=== PATIENT | female | born 1950 | race African-American/Black ===

== ENCOUNTER 2016-12-22 12:38 | Emergency (ER) | payer MEDICARE ==
[~2016-12-22] VITALS: Ht 152.4 cm; Wt 60.8 kg
[~2016-12-22 12:38] MED LIST: CYMBALTA20 MG ORAL; CYMBALTA60 MG ORAL; GABAPENTIN100 MG ORAL; HYDROCHLOROTH12.5 M2 ORAL; IBUPROFEN600 MG ORAL; IBUPROFEN600 MG PO; MACROBID100 MG ORAL; OXYCODONE HCL5 M2 ORAL; PERCOCET 5-3251 EACH ORAL; SYNTHROID100 MCG ORAL; UNOBMED; VALIUM5 MG PO; VICODIN 5-5001 EACH PO
[2016-12-22] MEDS ORDERED: Oxycodone/Acetaminophen 5-325 ORAL ONE (13:30)
[2016-12-22] MEDS ORDERED: Ketorolac 60mg Inj IM ONE (13:30)
[2016-12-22 13:41] LABS: APPEARANCE,URINE CLOUDY; KETONES,URINE NEGATIVE (NEGATIVE); LEUKOCYTE ESTERASE ,URINE 1+ (NEGATIVE); NITRITE,URINE NEGATIVE (NEGATIVE); PH,URINE 6 (4.5-8.0); PROTEIN,URINE 2+ (NEGATIVE); UROBILINOGEN,URINE NORMAL MG/DL (0.0-1.0)
--- NOTE | 2016-12-22 14:11 | Emergency Room Report ---
History of Present Illness General Chief Complaint: Back Pain-No Injury Source: Patient Present Illness HPI 66-year-old female presents emergency department complaining of exacerbation of her chronic back pain. Patient reports 9/10 in severity low back pain that radiates down the right leg. Patient states that she is not able to be seen by her pain management doctor until next Monday. Patient states she took Percocet prior to arrival with no relief. Patient reports fall 3 weeks ago however she states she was evaluated by her doctor who did not recommend further surgeries as she has arty had 11. Patient states she has been receiving nerve injections in the back she denies fevers or chills denies tenderness to the areas that were previously injected denies erythema or fluctuance. Patient denies frequency, hematuria or dysuria.. Denies numbness tingling or loss of sensation or gross motor movements of the extremities, incontinence of bowel or bladder. Denies CP, Palpitations, LOC, AMS, dizziness, Changes in Vision, Sensation, paresthesias, or a sudden severe headache. Allergies: Coded Allergies: PENICILLINS (Verified Allergy, Mild, Hives, 01/14/13) Patient History Past Medical History: see triage record Past Surgical History: none Pertinent Family History: none Now: No Immunizations: UTD Reviewed Nursing Documentation: PMH: Agreed, PSxH: Agreed Nursing Documentation-PMH Past Medical History: No History, Except For Hx Hypertension: Yes - HIGH CHOLESTEROL Hx Diabetes: Yes Hx Neurological Problems: Yes - Sciatica, Back surgery 9 times, THYROID Review of Systems All Other Systems: negative except mentioned in HPI Physical Exam Vital Signs Date Time Temp Pulse Resp B/P Pulse Ox O2 Delivery O2 Flow Rate FiO2 12/22/16 12:50 93 16 126/82 95 Room Air Sp02 EP Interpretation: reviewed, normal General Appearance: no apparent distress, alert, GCS 15, non-toxic Head: normocephalic, atraumatic Eyes: bilateral eye PERRL, bilateral eye normal inspection ENT: hearing grossly normal, normal pharynx, no angioedema, normal voice Neck: full range of motion, supple/symm/no masses Respiratory: chest non-tender, lungs clear, normal breath sounds, speaking full sentences Cardiovascular #1: regular rate, rhythm, no edema Rectal: deferred Genitourinary: normal inspection, no CVA tenderness Musculoskeletal: back normal, gait/station normal - has walker as well., normal range of motion, tender - Mild Tenderness to palpation to paraspinal muscles of the lower back, no spinous process tenderness, no midline tenderness , no erythema, no fluctuance, multiple surgical scars noted. Neurologic: alert, oriented x3, responsive, motor strength/tone normal, sensory intact, speech normal Psychiatric: judgement/insight normal, memory normal, mood/affect normal Skin: normal color, no rash, warm/dry, well hydrated Lymphatic: no adenopathy Medical Decision Making PA Attestation Dr. Resendez is my supervising Physician whom patient management has been discussed with. Diagnostic Impression: Primary Impression: Chronic pain Qualified Codes: G89.4 - Chronic pain syndrome ER Course 66-year-old female presents emergency department complaining of exacerbation of her chronic back pain. Patient reports 9/10 in severity low back pain that radiates down the right leg. Patient states that she is not able to be seen by her pain management doctor until next Monday. Patient states she took Percocet prior to arrival with no relief. Patient reports fall 3 weeks ago however she states she was evaluated by her doctor who did not recommend further surgeries as she has arty had 11. Patient states she has been receiving nerve injections in the back she denies fevers or chills denies tenderness to the areas that were previously injected denies erythema or fluctuance. Patient denies frequency, hematuria or dysuria.. Ddx considered: epidural abscess, fracture, sprain/strain, meningitis, spinal chord injury, epidural abscess, exacerbation of chronic back pain. Vital signs reviewed and are WNL during ED visit. Pt. is afebrile with no signs of infection No new symptoms, and denies recent trauma. No saddle anesthesia noted, Pt. denies incontinence Neurovascular is intact ROM is limited due to pain * Mild Tenderness to palpation to paraspinal muscles of the lower back, no spinous process tenderness, no midline tenderness, no erythema, no fluctuance, multiple surgical scars noted. *Pt. describes pain today as moderate and radiates across the lower back and down the right thigh. ORDERS: -UA: Pending INTERVENTIONS: - 40mg IM Toradol -5mg [place] PO D/W Pt. that for further pain management is it recommended to consult PCP or a Chronic Pain management doctor. A provider who can safely prescribe controlled substances with close follow up. URINE RESULTS STILL PENDING AT THIS TIME, PT >REQUESTS TO LEAVE. DISPOSITION: - At this time the patient is requesting to leave AGAINST MEDICAL ADVICE. I believe that this patient has the capacity to make decisions on Her own. I discussed with the patient the risks of leaving AMA. Some of these risks include delay in diagnosis and treatment, as well as worsening of symptoms, organ damage, and permanent disability or even . After discussing these risks with the patient. She continues to express Her want to leave AGAINST MEDICAL ADVICE. I encouraged the patient to return at any time, and that she will be welcome here in the emergency department to continue medical management. Labs Test 12/22/16 13:30 Urine Color Pale yellow Urine Appearance Cloudy Urine pH 6 (4.5-8.0) Urine Specific [place] 1.010 (1.005-1.035) Urine Protein 2+ (NEGATIVE) Urine Glucose (UA) Negative (NEGATIVE) Urine Ketones Negative (NEGATIVE) Urine Occult Blood Negative (NEGATIVE) Urine Nitrite Negative (NEGATIVE) Urine Bilirubin Negative (NEGATIVE) Urine Urobilinogen Normal MG/DL (0.0-1.0) Urine Leukocyte Esterase 1+ (NEGATIVE) Urine RBC 2-4 /HPF (0 - 2) Urine WBC 2-4 /HPF (0 - 2) Urine Squamous Epithelial Cells Moderate /LPF (NONE/OCC) Urine Amorphous Sediment Moderate /LPF (NONE) Urine Bacteria Few /HPF (NONE) Last Vital Signs Date Time Temp Pulse Resp B/P Pulse Ox O2 Delivery O2 Flow Rate FiO2 12/22/16 12:50 93 16 126/82 95 Room Air Disposition: AGAINST MEDICAL ADVICE Condition: Unknown Josselyn Deng December 22, 2016 14:11
[2016-12-22 14:18] VITALS: BP 117/61
[2016-12-22 14:20] LABS: AMORPHOUS SEDIMENT,UR MODERATE /LPF; BACTERIA,URINE FEW /HPF; SQUAMOUS EPITHELIAL CELL,UR MODERATE /LPF (NONE/OCC)
== END 2016-12-22 14:40 | disposition left against medical advice (07) ==
LOC: EMR 14:37
DX: G89.4 Chronic pain syndrome (principal); M54.40 Lumbago with sciatica, unspecified side; E11.9 Type 2 diabetes mellitus without complications; E78.00 Pure hypercholesterolemia, unspecified; Z88.0 Allergy status to penicillin
CPT/HCPCS: 81003; 96372; 99283

== ENCOUNTER 2019-08-04 19:30 | Inpatient (IN) | payer MEDICARE, MEDICAID ==
[~2019-08-04] VITALS: Ht 165.1 cm; Wt 63.8 kg
--- NOTE | 2019-08-04 19:30 | NUR ---
NURSE NOTES: Patient arrived via ambulance from [place] directly to the floor. Patient on room air, no s/s respiratory distress.
[2019-08-04 20:00] VITALS: BP 136/74
--- NOTE | 2019-08-04 20:00 | NUR ---
NURSE NOTES: Normal sinus rhythm. Oriented patient to unit. Bed in low position, locked, bed alarm on, call light within reach. 24 gauge piv on right hand, intact, patent, no signs of infiltration, saline locked. Belongings list signed. patient has 1212 dollars in manzano, will place in safe with steam powerplant supervisor.
[2019-08-04 21:00] VITALS: BP 133/73
[2019-08-04] MEDS: Morphine Sulfate 4mg/ml Inj (IV USE ONLY) IVP PRN (22:45)
[2019-08-04] MEDS ORDERED: Nitroglycerin Subl 0.4mg tab SL PRN (23:30)
[2019-08-05] VITALS (7 sets, daily range): BP systolic 110–127; BP diastolic 55–73
--- NOTE | 2019-08-05 00:45 | NUR ---
NURSE NOTES: Left message for Dr. Gonsales regarding patient's c/o severe heartburn.
--- NOTE | 2019-08-05 01:08 | NUR ---
NURSE NOTES: Notified Dr. Gonsales second time by phone and left message requesting orders for patient's severe heartburn.
--- NOTE | 2019-08-05 01:40 | NUR ---
NURSE NOTES: Spoke with Dr. Gonsales and received orders for protonix 40mg po daily and mylanta 30 ml po q 6 hours prn.
[2019-08-05] MEDS ORDERED: GLIPIZIDE10 MG PO (02:33)
[2019-08-05] MEDS: Morphine Sulfate 4mg/ml Inj (IV USE ONLY) IVP PRN ×2 (03:18→20:17)
[2019-08-05] MEDS: NovoLOG Insulin Flexpen SUBQ SCH ×4 (06:18→20:27)
[2019-08-05 07:06] LABS: BASOPHILS % (AUTO) 0.4 % (0.0-2.0); EOSINOPHILS % (AUTO) 2.1 % (0.0-3.0); HEMATOCRIT 33.3 % (37.0-47.0); HEMOGLOBIN 10.8 G/DL (12.0-16.0); LYMPHOCYTES % (AUTO) 31.2 % (20.0-45.0); MEAN CORPUSCULAR VOLUME 90 FL (80-99); NEUTROPHILS % (AUTO) 57.4 % (45.0-75.0); PLATELET COUNT 266 K/UL (150-450); RED BLOOD COUNT 3.69 M/UL (4.20-5.40); RED CELL DISTRIBUTION WIDTH 14.5 % (11.6-14.8); WHITE BLOOD COUNT 5.9 K/UL (4.8-10.8)
--- NOTE | 2019-08-05 07:10 | NUR ---
NURSE NOTES: Received report from NARDA Wasserman. The patient is resting on the bed without acute distress or shortness of breath. The patient's bed in the lowest position, call light in reach, and fall and aspiration precaution reinforced. IV site intact and patent. Will continue plan of care.
[2019-08-05 07:22] LABS: ALANINE AMINOTRANSFERASE 21 U/L (12-78); ALBUMIN 3.3 G/DL (3.4-5.0); ALBUMIN/GLOBULIN RATIO 0.9 (1.0-2.7); ALKALINE PHOSPHATASE 65 U/L (46-116); ANION GAP 7 mmol/L (5-15); ASPARTATE AMINO TRANSFERASE 12 U/L (15-37); BILIRUBIN,TOTAL 0.2 MG/DL (0.2-1.0); BLOOD UREA NITROGEN 29 mg/dL (7-18); CALCIUM 9.4 MG/DL (8.5-10.1); CARBON DIOXIDE 28 MMOL/L (21-32); CHLORIDE 106 MMOL/L (98-107); CHOLESTEROL 118 MG/DL (< 200); CREATININE 1.4 MG/DL (0.55-1.30); HDL CHOLESTEROL 31 MG/DL (40-60); PHOSPHORUS 4.4 MG/DL (2.5-4.9); POTASSIUM 4.9 MMOL/L (3.5-5.1); SODIUM 141 MMOL/L (136-145); TRIGLYCERIDES 85 MG/DL (30-150)
[2019-08-05] MEDS: GlipiZIDE 5mg tab ORAL SCH (08:46)
[2019-08-05] MEDS: Heparin 5000 units/ml inj SUBQ SCH ×2 (08:47→20:24)
[2019-08-05] MEDS ORDERED: Gabapentin 300 MG/6 ML Soln GT SCH (09:00)
--- NOTE | 2019-08-05 10:45 | NUR ---
NURSE NOTES: The patient has discomfort on chest that is radiating back. EKG taken and reported to Dr. Gonsales. Per Dr. Gonsales, no new order. The patient is calm and cooperative. Will continue plan of care.
--- NOTE | 2019-08-05 11:30 | NUR ---
NURSE NOTES: The patient is stable without acute distress or shortness of breath. Will continue plan of care.
--- NOTE | 2019-08-05 12:00 | NUR ---
NURSE NOTES: Notified Dr. Gill regarding the patient's discomfort on chest. No new order per Dr. Gill. Will continue plan of care.
--- NOTE | 2019-08-05 12:09 | Consultation ---
History of Present Illness General Date patient seen: Aug 05, 2019 Present Illness HPI 69 year old female with hx of HTN, DM, CAD, with 3 stents, on Brilinta, chronic back pain, was taken to [facility] with CC of chest pain, starting the night before, mostly substernal, burning, constant radiating to her left arm. she has many ER visits to [facility] with the same symptoms. Her CXR and troponin was negative. She got a GI cocktail, morphine, full dose of ASA and transferred to [facility] for further management. Allergies: Coded Allergies: PENICILLINS (Verified Allergy, Mild, Hives, 01/14/13) NSAIDS (NON-STEROIDAL ANTI-INFLAMMA (Unverified Allergy, Unknown, unknown , 08/05/19) Medication History Scheduled Diazepam* (Valium*), 5 MG PO TID Duloxetine (Cymbalta), 20 MG ORAL DAILY, (Reported) Duloxetine Hcl* (Cymbalta*), 300 MG ORAL DAILY, (Reported) Gabapentin* (Gabapentin*), 100 MG ORAL BID, (Reported) Glipizide (Glipizide), 10 MG PO DAILY, (Reported) Hydrochlorothiazide* (Hydrochlorothiazide*), 12.5 MG ORAL DAILY, (Reported) Hydrocodone/Acetaminophen 5-500 (Vicodin 5-500), 1 TAB PO Q8H Ibuprofen* (Motrin*), 600 MG PO TID Levothyroxine Sodium* (Synthroid*), 100 MCG ORAL DAILY, (Reported) Nitrofurantoin Monohyd/M-Cryst (Nitrofurantoin [place]-Mcr 100 mg), 100 MG ORAL Q12H Scheduled PRN Ibuprofen* (Motrin*), 600 MG ORAL Q6H PRN for For Pain Oxycodone Hcl* (Oxycodone Hcl*), 5 MG ORAL Q4H PRN for For Pain, (Reported) Oxycodone/Acetaminophen 5-325* (Percocet 5-325 Mg Tablet*), 1 TAB ORAL Q6H PRN for For Pain Patient History Healthcare decision maker Resuscitation status Full Code Advanced Directive on File Past Medical/Surgical History Past Medical/Surgical History: (1) CAD (coronary artery disease) (2) Stented coronary artery Review of Systems All Other Systems: negative except mentioned in HPI Physical Exam General Appearance: WD/WN, no apparent distress Lines, tubes and drains: peripheral HEENT: normocephalic, atraumatic Neck: non-tender, normal alignment Respiratory/Chest: chest wall non-tender Breasts: no masses Cardiovascular/Chest: normal peripheral pulses Abdomen: normal bowel sounds Genitourinary/Rectal: normal genital exam Last 24 Hour Vital Signs Date Time Temp Pulse Resp B/P (MAP) Pulse Ox O2 Delivery O2 Flow Rate FiO2 08/05/19 09:00 Room Air 08/05/19 08:00 68 08/05/19 08:00 97.5 73 18 127/63 (84) 98 08/05/19 04:00 97.2 77 20 127/69 (88) 94 08/05/19 04:00 80 08/05/19 00:00 98.2 84 21 127/69 (88) 98 08/05/19 00:00 83 08/04/19 21:00 97.3 75 20 133/73 (93) 97 08/04/19 20:00 72 08/04/19 20:00 Room Air 08/04/19 20:00 97.9 66 20 136/74 (94) 98 Intake and Output 08/04/19 08/05/19 19:00 07:00 Output Total 0 ml Balance 0 ml Output Urine Total 0 ml Laboratory Tests Test 08/05/19 06:00 White Blood Count 5.9 K/UL (4.8-10.8) Red Blood Count 3.69 M/UL (4.20-5.40) L Hemoglobin 10.8 G/DL (12.0-16.0) L Hematocrit 33.3 % (37.0-47.0) L Mean Corpuscular Volume 90 FL (80-99) Mean Corpuscular Hemoglobin 29.3 PG (27.0-31.0) Mean Corpuscular Hemoglobin Concent 32.4 G/DL (32.0-36.0) Red Cell Distribution Width 14.5 % (11.6-14.8) Platelet Count 266 K/UL (150-450) Mean Platelet Volume 5.3 FL (6.5-10.1) L Neutrophils (%) (Auto) 57.4 % (45.0-75.0) Lymphocytes (%) (Auto) 31.2 % (20.0-45.0) Monocytes (%) (Auto) 9.0 % (1.0-10.0) Eosinophils (%) (Auto) 2.1 % (0.0-3.0) Basophils (%) (Auto) 0.4 % (0.0-2.0) Sodium Level 141 MMOL/L (136-145) Potassium Level 4.9 MMOL/L (3.5-5.1) Chloride Level 106 MMOL/L (98-107) Carbon Dioxide Level 28 MMOL/L (21-32) Anion Gap 7 mmol/L (5-15) Blood Urea Nitrogen 29 mg/dL (7-18) H Creatinine 1.4 MG/DL (0.55-1.30) H Estimat Glomerular Filtration Rate 45.3 mL/min (>60) Glucose Level 101 MG/DL (74-106) Uric Acid Pending Calcium Level 9.4 MG/DL (8.5-10.1) Phosphorus Level 4.4 MG/DL (2.5-4.9) Magnesium Level 2.0 MG/DL (1.8-2.4) Total Bilirubin 0.2 MG/DL (0.2-1.0) Aspartate Amino Transf (AST/SGOT) 12 U/L (15-37) L Alanine Aminotransferase (ALT/SGPT) 21 U/L (12-78) Alkaline Phosphatase 65 U/L (46-116) Total Creatine Kinase Pending Troponin I 0.005 ng/mL (0.000-0.056) Total Protein 7.0 G/DL (6.4-8.2) Albumin 3.3 G/DL (3.4-5.0) L Globulin 3.7 g/dL Albumin/Globulin Ratio 0.9 (1.0-2.7) L Triglycerides Level 85 MG/DL (30-150) Cholesterol Level 118 MG/DL (< 200) LDL Cholesterol 56 mg/dL (<100) HDL Cholesterol 31 MG/DL (40-60) L Cholesterol/HDL Ratio 3.8 (3.3-4.4) Height (Feet): 5 Height (Inches): 5.00 Weight (Pounds): 133 Medications Current Medications Medications (Trade) Dose Ordered Sig/Kelly Route PRN Reason Start Time Stop Time Status Last Admin Dose Admin Acetaminophen (Tylenol) 650 mg Q6H PRN ORAL Mild Pain/Temp > 100.5 08/04/19 23:30 09/03/19 23:29 Al Hydroxide/Mg Hydroxide (Mylanta) 30 ml Q6H PRN ORAL heartburn 08/05/19 01:30 09/04/19 01:29 08/05/19 01:38 Dextrose (Dextrose 50%) 25 ml Q30M PRN IV Hypoglycemia 08/04/19 21:30 09/03/19 21:29 Dextrose (Dextrose 50%) 50 ml Q30M PRN IV Hypoglycemia 08/04/19 21:30 09/03/19 21:29 Duloxetine HCl (Cymbalta) 60 mg DAILY ORAL 08/05/19 09:00 09/04/19 08:59 08/05/19 08:46 Gabapentin (Neurontin) 300 mg THREE TIMES A DAY ORAL 08/05/19 09:00 09/04/19 08:59 08/05/19 08:46 Glipizide (Glucotrol) 10 mg DAILY ORAL 08/05/19 09:00 09/04/19 08:59 08/05/19 08:46 Heparin Sodium (Porcine) (Heparin 5000 units/ml) 5,000 units EVERY 12 HOURS SUBQ 08/05/19 09:00 09/04/19 08:59 08/05/19 08:47 Insulin Aspart (NovoLOG) BEFORE MEALS AND HS SUBQ 08/05/19 06:30 09/04/19 06:29 Levothyroxine Sodium (Synthroid) 88 mcg DAILY@0630 ORAL 08/05/19 06:30 09/04/19 06:29 08/05/19 06:03 Morphine Sulfate (Morphine Sulfate) 4 mg Q4H PRN IVP severe pain 08/04/19 21:30 08/11/19 21:29 08/05/19 03:18 Nitroglycerin (Ntg) 0.4 mg Q5M PRN SL Prn Chest Pain 08/04/19 23:30 09/03/19 23:29 Non-Formulary Medication (Non-Formulary Med) 1 ea DAILY ORAL 08/05/19 09:00 09/04/19 08:59 UNV Ondansetron HCl (Zofran) 4 mg Q4HR PRN IVP Nausea & Vomiting 08/04/19 22:45 09/03/19 22:44 08/04/19 22:58 Oxycodone/ Acetaminophen (Percocet 10/325) 1 tab Q6HR PRN GT moderate pain 08/04/19 22:45 08/11/19 21:29 08/05/19 06:05 Pantoprazole (Protonix) 40 mg DAILY ORAL 08/05/19 02:00 09/04/19 01:59 08/05/19 01:38 Assessment/Plan Problem List: (1) ACS (acute coronary syndrome) ICD Codes: I24.9 - Acute ischemic heart disease, unspecified SNOMED: 210804590 (2) Stented coronary artery ICD Codes: Z95.5 - Presence of coronary angioplasty implant and graft SNOMED: 90558841, 621977191 (3) CAD (coronary artery disease) ICD Codes: I25.10 - Atherosclerotic heart disease of [place] coronary artery without angina pectoris SNOMED: 56503713 (4) Chronic pain ICD Codes: G89.29 - Other chronic pain SNOMED: 54453906 Assessment/Plan: serial ekg, troponin telemetry monitoring check echo symptomatic treatment H2 blockers might have GERD DVT prophylaxis. Emma Manrique MD Aug 05, 2019 12:09
[2019-08-05 12:10] LABS: CREATINE KINASE 42 U/L (26-308)
--- NOTE | 2019-08-05 15:15 | NUR ---
NURSE NOTES: Per patient, the family member will bring Mirlande.
--- NOTE | 2019-08-05 16:00 | NUR ---
NURSE NOTES: The patient is stable without acute distress or shortness of breath. Will continue plan of care.
--- NOTE | 2019-08-05 16:44 | Diagnostic Imaging Report ---
Indication: Abnormal renal function tests Technique: Grayscale and duplex images of the kidneys, retroperitoneum, and bladder were obtained. Comparison: none Findings: Right kidney measures 9.7 cm in length. Left kidney measures 8 cm in length. Both kidneys demonstrate normal echogenicity. There is moderate right hydronephrosis versus right renal parapelvic cysts. No focal abnormality otherwise. Normal inferior vena cava. Bladder demonstrates prevoid bladder volume of 3 29 mL, and postvoid volume of 98 mL. Impression: Moderate right hydronephrosis versus parapelvic cysts Small left kidney 98 mL postvoid bladder volume.
--- NOTE | 2019-08-05 18:00 | NUR ---
NURSE NOTES: Informed Dr. Manrique and Dr. Gill that the patient family member cannot bring Brilinta. Asked Dr. Gill and Dr. Manrique for possible alternative. Per Dr. Gill, he will assess the patient and will order if indicated. The patient is stable without acute distress or shortness of breath. Will continue plan of care.
--- NOTE | 2019-08-05 19:15 | NUR ---
HAND-OFF: Report given to NARDA Wasserman. The patient is resting on the bed without acute distress or shortness of breath. The patient's bed in the lowest position, call light in reach, and fall and aspiration precaution reinforced. IV site intact and patent. Endorsed plan of care.
--- NOTE | 2019-08-05 19:36 | NUR ---
NURSE NOTES: Patient in bed, alert and oriented x4, on room air, no s/s respiratory distress. Asked again if patient wants to lock up the 1212 dollars of manzano with the respiratory supervisor. Patient continues to decline. Instructed patient to provide a sample of urine. Patient verbalized understanding.
--- NOTE | 2019-08-05 19:44 | History & Physical ---
History and Physical History & Physicial Dictated for Int Med-Dr Gonsales no. [id number]. Musa Barlow MD Aug 05, 2019 19:44
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
[2019-08-05] MEDS ORDERED: Atorvastatin 20mg tab ORAL SCH (21:00)
[2019-08-05] MEDS: Aspirin EC 81mg tab ORAL SCH (21:35)
[2019-08-05] MEDS: Imdur 30mg tab ORAL SCH (21:35)
[2019-08-05] MEDS: Ranolazine 500mg tab ORAL SCH (21:35)
--- NOTE | 2019-08-05 21:45 | History and Physical Report ---
DATE OF ADMISSION: 08/04/2019 CHIEF COMPLAINT: The patient is a 69-year-old female, who presents with a chief complaint of chest pain. HISTORY OF PRESENT ILLNESS: The patient has a history of coronary artery disease. The patient is status post three stents placed. The patient presented to [facility] emergency room with complaint of chest pain. The patient apparently had been at [facility] ten days previously for chest pain. The patient was placed under observation and discharge. The patient was transferred to [facility] for insurance purposes. The patient was admitted with chest pain to rule out acute coronary syndrome. REVIEW OF SYSTEMS: CONSTITUTIONAL: The patient denies weight loss or weight gain. The patient denies fevers or chills. HEENT: The patient denies ear or throat pain. The patient denies headache. CARDIOVASCULAR: The patient complains of chest pain as above. The patient denies palpitations. CHEST: The patient denies wheeze or shortness of breath. ABDOMINAL: The patient denies nausea, vomiting, diarrhea, or constipation. GENITOURINARY: The patient denies dysuria or increased frequency of urination. NEUROMUSCULAR: The patient denies seizures or generalized weakness. PAST MEDICAL HISTORY: Significant for: 1. Hypertension. 2. Coronary artery disease status post three stent placed at [facility]. PAST SURGICAL HISTORY: The patient denies. CURRENT MEDICATIONS: 1. Valium 5 mg one tablet p.o. three times daily p.r.n. 2. Cymbalta 20 mg p.o. daily. 3. Gabapentin 100 mg p.o. twice daily. 4. Glipizide 10 mg p.o. daily. 5. Hydrochlorothiazide 12.5 mg p.o. daily. 6. Levoxyl 100 mcg p.o. daily. 7. Percocet 5/325 mg one tablet p.o. q.6 h. p.r.n. ALLERGIES: NSAIDs and penicillin. SOCIAL HISTORY: The patient is single and lives alone. The patient denies tobacco or alcohol use. PHYSICAL EXAMINATION: VITAL SIGNS: Temperature 98.0 degrees Fahrenheit, respirations 18, pulse 105, blood pressure 169/101. GENERALLY: The patient is well-developed and well-nourished female, in no apparent distress. HEENT: Eyes, pupils are equal and responsive to light and accommodation. Extraocular movements are intact. NECK: Supple. No lymphadenopathy. CHEST: Lungs are clear to auscultation bilaterally without wheezes or rales. CARDIOVASCULAR: Regular rate. S1 and S2 normal without murmurs, rubs, or gallops. ABDOMEN: Soft, nontender, and nondistended. Positive bowel sounds. No evidence of hepatosplenomegaly. Currently, no rebound or guarding noted. EXTREMITIES: No clubbing, cyanosis, or edema. RECTAL: Not performed. GENITAL: Not performed. NEUROLOGIC: Cranial nerves II through XII are grossly intact without focal deficits. Motor strength is 5/5 bilaterally. Deep tendon reflexes are 2+ plantar. LABORATORY STUDIES: WBC 7.2, hemoglobin 12.2, hematocrit 37.2, platelets 316,000. Troponin less than 0.02. Sodium 143, potassium 4.2, chloride 106, CO2 23, BUN 26, creatinine 1.33, glucose 108. An EKG demonstrated normal sinus rhythm at approximately 80 beats per minute. There are no acute ST or Q-waves noted. ASSESSMENT: This is a 69-year-old female. 1. Chest pain. 2. Hypertension. 3. Coronary artery disease. 4. Hypothyroidism. 5. Diabetes type 2. TREATMENT: 1. Chest pain/coronary disease. A Cardiology consultation has been obtained with Dr. Thomas Thompson. We will follow recommendations of Cardiology. 2. Hypertension. The patient is currently normotensive off medication. 3. Hypothyroidism. Continue Synthroid as above. 4. Diabetes type 2. Continue glyburide as above. Musa Barlow M.D. DR: Rj JOB#: [id number] CC:
[2019-08-06] VITALS: BP 110/64
[2019-08-06] MEDS: Morphine Sulfate 4mg/ml Inj (IV USE ONLY) IVP PRN ×3 (01:09→21:44)
[2019-08-06 04:00] VITALS: BP 107/60
[2019-08-06] MEDS: NovoLOG Insulin Flexpen SUBQ SCH ×4 (06:15→20:36)
[2019-08-06 06:26] LABS: APPEARANCE,URINE CLEAR; BILIRUBIN, URINE NEGATIVE (NEGATIVE); COLOR,URINE PALE YELLOW; GLUCOSE, URINE (UA) NEGATIVE (NEGATIVE); KETONES,URINE NEGATIVE (NEGATIVE); LEUKOCYTE ESTERASE ,URINE 1+ (NEGATIVE); NITRITE,URINE NEGATIVE (NEGATIVE); PH,URINE 6 (4.5-8.0); PROTEIN,URINE 2+ (NEGATIVE); UROBILINOGEN,URINE NORMAL MG/DL (0.0-1.0)
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
[2019-08-06 07:20] LABS: BASOPHILS % (AUTO) 0.4 % (0.0-2.0); EOSINOPHILS % (AUTO) 2.2 % (0.0-3.0); HEMATOCRIT 32.5 % (37.0-47.0); HEMOGLOBIN 10.4 G/DL (12.0-16.0); LYMPHOCYTES % (AUTO) 30.4 % (20.0-45.0); MEAN CORPUSCULAR VOLUME 92 FL (80-99); MONOCYTES % (AUTO) 9.2 % (1.0-10.0); NEUTROPHILS % (AUTO) 57.7 % (45.0-75.0); PLATELET COUNT 292 K/UL (150-450); RED BLOOD COUNT 3.55 M/UL (4.20-5.40); RED CELL DISTRIBUTION WIDTH 14.7 % (11.6-14.8); WHITE BLOOD COUNT 5.2 K/UL (4.8-10.8)
[2019-08-06 07:46] LABS: ALANINE AMINOTRANSFERASE 22 U/L (12-78); ALBUMIN 3.2 G/DL (3.4-5.0); ALBUMIN/GLOBULIN RATIO 0.9 (1.0-2.7); ALKALINE PHOSPHATASE 65 U/L (46-116); AMYLASE 122 U/L (25-115); ANION GAP 6 mmol/L (5-15); ASPARTATE AMINO TRANSFERASE 12 U/L (15-37); BILIRUBIN,TOTAL 0.2 MG/DL (0.2-1.0); BLOOD UREA NITROGEN 32 mg/dL (7-18); CALCIUM 8.9 MG/DL (8.5-10.1); CARBON DIOXIDE 29 MMOL/L (21-32); CHLORIDE 108 MMOL/L (98-107); CHOLESTEROL 113 MG/DL (< 200); CREATININE 1.4 MG/DL (0.55-1.30); HDL CHOLESTEROL 25 MG/DL (40-60); POTASSIUM 4.4 MMOL/L (3.5-5.1); SODIUM 142 MMOL/L (136-145); TRIGLYCERIDES 147 MG/DL (30-150)
[2019-08-06 08:00] VITALS: BP 106/60
[2019-08-06] MEDS: Heparin 5000 units/ml inj SUBQ SCH ×3 (09:00→20:36)
[2019-08-06] MEDS: Aspirin EC 81mg tab ORAL SCH (09:04)
[2019-08-06] MEDS: GlipiZIDE 5mg tab ORAL SCH (09:04)
[2019-08-06] MEDS: Ranolazine 500mg tab ORAL SCH ×2 (09:05→20:35)
[2019-08-06] MEDS: Imdur 30mg tab ORAL SCH (09:05)
--- NOTE | 2019-08-06 10:30 | NUR ---
NURSE NOTES: The patient is stable without acute distress or shortness of breath. Will continue plan of care.
--- NOTE | 2019-08-06 11:00 | NUR ---
NURSE NOTES: Notified Dr. Manrique and the charge nurse regarding hypoglycemia with BS of 59. Per order, gave orange juice. The patient is alert and oriented and asymptomatic. Will recheck blood sugar 15 minute later.
--- NOTE | 2019-08-06 11:03 | NUR ---
CASE MANAGEMENT: INITIAL REVIEW 69YR OLD FEMALE FROM [facility] PMH: HTN, DM, CAD, AND 3 STENTS SI: CORONARY ARTERY DISEASE . STENTED CORONARY ARTERY 97.9 66 72 136/74 98% ON RA H/H 10.8/33.3 BUN 29 CREAT 1.4 AST 12 IS: IMDUR PO QD HEPARIN SQ BID PERCOCET GT QHS NEURONTIN GT TID PROTONIX PO QD \: 2E TELE UNIT PLAN: CT ABD - CHECK FOR HYDRONEPHROSIS DOWNGRADE MED SURG
--- NOTE | 2019-08-06 11:06 | Pulmonology Progress Note ---
Assessment/Plan Problems: (1) ACS (acute coronary syndrome) (2) Hydronephrosis, right (3) Stented coronary artery (4) CAD (coronary artery disease) (5) Chronic pain Assessment/Plan will get CT with contrast to clarify the findings on US of kidney which showed: Impression: Moderate right hydronephrosis versus parapelvic cysts Renal numbers are stable cardio note appreciated check echo Subjective ROS Limited/Unobtainable: No Constitutional: Reports: no symptoms HEENT: Repors: no symptoms Allergies: Coded Allergies: PENICILLINS (Verified Allergy, Mild, Hives, 01/14/13) NSAIDS (NON-STEROIDAL ANTI-INFLAMMA (Unverified Allergy, Unknown, unknown , 08/05/19) Objective Last 24 Hour Vital Signs Date Time Temp Pulse Resp B/P (MAP) Pulse Ox O2 Delivery O2 Flow Rate FiO2 08/06/19 09:05 106/60 08/06/19 09:00 Room Air 08/06/19 08:00 69 08/06/19 08:00 97.8 76 18 106/60 (75) 97 08/06/19 04:00 98.1 87 19 107/60 (76) 92 08/06/19 04:00 82 08/06/19 00:00 98.2 81 18 110/64 (79) 91 08/06/19 00:00 81 08/05/19 21:35 115/55 (75) 08/05/19 21:00 Room Air 08/05/19 20:00 97.8 79 19 110/64 (79) 93 08/05/19 20:00 80 08/05/19 16:00 72 08/05/19 16:00 97.8 85 18 111/73 (86) 99 08/05/19 12:00 98.2 59 18 125/64 (84) 99 08/05/19 12:00 67 Intake and Output 08/05/19 08/06/19 19:00 07:00 Intake Total 900 ml 480 ml Balance 900 ml 480 ml Intake Oral 900 ml 480 ml # Voids 5 1 General Appearance: cachetic HEENT: normocephalic, atraumatic Respiratory/Chest: chest wall non-tender, lungs clear Breasts: no masses Cardiovascular: normal peripheral pulses Abdomen: normal bowel sounds, soft, non tender Genitourinary: normal external genitalia Extremities: no clubbing Neurologic/Psychiatric: gambling dealer II-XII grossly normal Laboratory Tests 08/06/19 03:50: Urine Color Pale yellow, Urine Appearance Clear, Urine pH 6, Urine Specific Dewitt 1.010, Urine Protein 2+H, Urine Glucose (UA) Negative, Urine Ketones Negative, Urine Blood Negative, Urine Nitrite Negative, Urine Bilirubin Negative , Urine Urobilinogen Normal, Urine Leukocyte Esterase 1+H, Urine RBC 0-2, Urine WBC 0-2, Urine Squamous Epithelial Cells Few, Urine Bacteria None, Urine Eosinophils None seen, Urine Osmolality 443, Urine Random Creatinine [Pending], Urine Random Microalbumin [Pending], Urine Random Sodium 28, Urine Microalbumin/ Creatinine Ratio [Pending] 08/06/19 05:54: White Blood Count 5.2, Red Blood Count 3.55L, Hemoglobin 10.4L, Hematocrit 32.5L , Mean Corpuscular Volume 92, Mean Corpuscular Hemoglobin 29.2, Mean Corpuscular Hemoglobin Concent 31.8L, Red Cell Distribution Width 14.7, Platelet Count 292, Mean Platelet Volume 5.7L, Neutrophils (%) (Auto) 57.7, Lymphocytes (%) (Auto) 30.4, Monocytes (%) (Auto) 9.2, Eosinophils (%) (Auto) 2.2, Basophils (%) (Auto) 0.4, Erythrocyte Sedimentation Rate 64H, Sodium Level 142, Potassium Level 4.4, Chloride Level 108H, Carbon Dioxide Level 29, Anion Gap 6, Blood Urea Nitrogen 32H, Creatinine 1.4H, Estimat Glomerular Filtration Rate 45.3, Glucose Level 125H, Calcium Level 8.9, Phosphorus Level 5.0H, Magnesium Level 2.1, Total Bilirubin 0.2, Aspartate Amino Transf (AST/SGOT) 12L , Alanine Aminotransferase (ALT/SGPT) 22, Alkaline Phosphatase 65, Troponin I 0.003, Pro-B-Type Natriuretic Peptide 377H, Total Protein 6.8, Albumin 3.2L, Globulin 3.6, Albumin/Globulin Ratio 0.9L, Triglycerides Level 147, Cholesterol Level 113, LDL Cholesterol 55, HDL Cholesterol 25L, Cholesterol/HDL Ratio 4.5H, Amylase Level 122H, Lipase 356 Current Medications Medications (Trade) Dose Ordered Sig/Kelly Route PRN Reason Start Time Stop Time Status Last Admin Dose Admin Acetaminophen (Tylenol) 650 mg Q6H PRN ORAL Mild Pain/Temp > 100.5 08/04/19 23:30 09/03/19 23:29 Al Hydroxide/Mg Hydroxide (Mylanta) 30 ml Q6H PRN ORAL heartburn 08/05/19 01:30 09/04/19 01:29 08/06/19 10:56 Aspirin (Ecotrin) 81 mg DAILY ORAL 08/05/19 21:00 09/04/19 20:59 08/06/19 09:04 Atorvastatin Calcium (Lipitor) 40 mg BEDTIME ORAL 08/05/19 21:00 09/04/19 20:59 08/05/19 21:36 Dextrose (Dextrose 50%) 25 ml Q30M PRN IV Hypoglycemia 08/04/19 21:30 09/03/19 21:29 Dextrose (Dextrose 50%) 50 ml Q30M PRN IV Hypoglycemia 08/04/19 21:30 09/03/19 21:29 Duloxetine HCl (Cymbalta) 60 mg DAILY ORAL 08/05/19 09:00 09/04/19 08:59 08/06/19 09:04 Gabapentin (Neurontin) 300 mg THREE TIMES A DAY ORAL 08/05/19 09:00 09/04/19 08:59 08/06/19 09:05 Glipizide (Glucotrol) 10 mg DAILY ORAL 08/05/19 09:00 09/04/19 08:59 08/06/19 09:04 Heparin Sodium (Porcine) (Heparin 5000 units/ml) 5,000 units EVERY 12 HOURS SUBQ 08/05/19 09:00 09/04/19 08:59 08/05/19 20:24 Insulin Aspart (NovoLOG) BEFORE MEALS AND HS SUBQ 08/05/19 06:30 09/04/19 06:29 08/06/19 06:15 Isosorbide Mononitrate (Imdur) 30 mg DAILY ORAL 08/05/19 21:00 09/04/19 20:59 08/06/19 09:05 Levothyroxine Sodium (Synthroid) 75 mcg DAILY@0630 ORAL 08/06/19 06:30 09/05/19 06:29 08/06/19 06:10 Levothyroxine Sodium (Synthroid) 100 mcg DAILY@0630 ORAL 08/06/19 06:30 09/05/19 06:29 08/06/19 06:10 Morphine Sulfate (Morphine Sulfate) 4 mg Q4H PRN IVP severe pain 08/04/19 21:30 08/11/19 21:29 08/06/19 01:09 Nitroglycerin (Ntg) 0.4 mg Q5M PRN SL Prn Chest Pain 08/04/19 23:30 09/03/19 23:29 Ondansetron HCl (Zofran) 4 mg Q4HR PRN IVP Nausea & Vomiting 08/04/19 22:45 09/03/19 22:44 08/04/19 22:58 Oxycodone/ Acetaminophen (Percocet 10/325) 1 tab Q6H PRN ORAL moderate pain 08/05/19 12:30 08/12/19 12:29 08/06/19 10:56 Pantoprazole (Protonix) 40 mg DAILY ORAL 08/05/19 02:00 09/04/19 01:59 08/06/19 09:05 Ranolazine (Ranexa ER 500mg) 500 mg Q12HR ORAL 08/05/19 21:00 09/04/19 20:59 08/06/19 09:05 Emma Manrique MD Aug 06, 2019 11:06
--- NOTE | 2019-08-06 11:14 | NUR ---
NURSE NOTES: spoke with dr tong and received order okay to transfer pt to [facility].
[2019-08-06] MEDS ORDERED: Omnipaque-300 100ml vial INJ PRN ×2 (11:15→12:45)
--- NOTE | 2019-08-06 11:15 | NUR ---
NURSE NOTES: Rechecked blood sugar. The figure was 62. The patient is stable without acute distress, shortness of breath, symptoms of hypoglycemia. The patient is alert, oriented, and asymptomatic. Will recheck blood sugar in 15 minute.
--- NOTE | 2019-08-06 11:30 | NUR ---
NURSE NOTES: Rechecked the blood sugar. The figure was 102. The patient is alert, oriented, and asymptomatic. Will continue plan of care.
[2019-08-06 12:00] VITALS: BP 132/70
--- NOTE | 2019-08-06 12:00 | NUR ---
TRANSFER TO FLOOR: Patient transferred to [facility] with med/surg transfer order per Dr. Manrique. The patient's belongings checked including manzano in hand ($[id number])with the patient and two nurses and signed by two nurses. The patient declined to put her valuables @ security. Comprehensive report given to NARDA Knott the receiving nurse. The patient is safely transferred from to [facility] in a safe manner. The patient is stable without acute distress or shortness of breath. The patient's bed in the lowest position, call light in reach, and fall and aspiration precaution reinforced. IV site intact and patent. Endorsed plan of care.
--- NOTE | 2019-08-06 12:10 | NUR ---
NURSE NOTES: Received patient from tele. Patient is awake, alert and oriented x4. Not in respiratory/cardiac distress @ this time. Re-orientation given to the patient about unit, call light, meal time, etc. Patient refused to keep her manzano in [facility] safe. IV is in tact, no s/s of infiltration. Patient is on NPO for CT of abdomen/pelvis. No s/s of hypoglycemia @ this time. Bed is in lowest position and locked. Bed alarm is on. V/S stable.Will continue plan of care.
[2019-08-06] MEDS ORDERED: Nitroglycerin Subl 0.4mg tab SL PRN (12:35)
--- NOTE | 2019-08-06 14:00 | NUR ---
NURSE NOTES: Patient is off the unit for CT of abdomen/pelvis in stable condition. Patient brought her wallet with her.IV is intact.
[2019-08-06 16:00] VITALS: BP 107/77
--- NOTE | 2019-08-06 16:30 | NUR ---
NURSE NOTES: Patient's blood sugar is 115 mg/dl.Patient refused to take novolog stating "My blood sugar was low earlier, so I do not need insulin." RN re-educated on medication. Patient fully understood but refused. Explained the risks and benefits.
--- NOTE | 2019-08-06 17:47 | Internal Med Progress Note ---
Subjective Date of Service: Aug 06, 2019 Physician Name Musa Barlow Attending Physician Joey Gonsales MD Current Medications Medications (Trade) Dose Ordered Sig/Kelly Route PRN Reason Start Time Stop Time Status Last Admin Dose Admin Acetaminophen (Tylenol) 650 mg Q6H PRN ORAL Mild Pain/Temp > 100.5 08/06/19 12:45 09/03/19 12:44 Al Hydroxide/Mg Hydroxide (Mylanta) 30 ml Q6H PRN ORAL heartburn 08/06/19 13:30 09/04/19 01:29 Aspirin (Ecotrin) 81 mg DAILY ORAL 08/07/19 09:00 09/04/19 20:59 Atorvastatin Calcium (Lipitor) 40 mg BEDTIME ORAL 08/06/19 21:00 09/04/19 20:59 Barium Sulfate (Readi-Cat 2) 450 ml NOW PRN ORAL Radiology Procedure 08/06/19 12:45 08/07/19 11:06 Dextrose (Dextrose 50%) 25 ml Q30M PRN IV Hypoglycemia 08/06/19 12:45 09/03/19 12:44 Dextrose (Dextrose 50%) 50 ml Q30M PRN IV Hypoglycemia 08/06/19 12:45 09/03/19 12:44 Duloxetine HCl (Cymbalta) 60 mg DAILY ORAL 08/07/19 09:00 09/04/19 08:59 Gabapentin (Neurontin) 300 mg THREE TIMES A DAY ORAL 08/06/19 13:00 09/04/19 08:59 08/06/19 17:31 Glipizide (Glucotrol) 10 mg DAILY ORAL 08/07/19 09:00 09/04/19 08:59 Heparin Sodium (Porcine) (Heparin 5000 units/ml) 5,000 units EVERY 12 HOURS SUBQ 08/06/19 21:00 09/04/19 08:59 Insulin Aspart (NovoLOG) BEFORE MEALS AND HS SUBQ 08/06/19 16:30 09/04/19 06:29 Iohexol (OMNIPAQUE-300 100ml) 100 ml NOW PRN INJ Radiology Procedure 08/06/19 12:45 08/07/19 11:06 Isosorbide Mononitrate (Imdur) 30 mg DAILY ORAL 08/07/19 09:00 09/04/19 20:59 Levothyroxine Sodium (Synthroid) 75 mcg DAILY@0630 ORAL 08/07/19 06:30 09/05/19 06:29 Levothyroxine Sodium (Synthroid) 100 mcg DAILY@0630 ORAL 08/07/19 06:30 09/05/19 06:29 Morphine Sulfate (Morphine Sulfate) 4 mg Q4H PRN IVP Severe Pain (Pain Scale 7-10) 08/06/19 12:45 08/11/19 12:44 08/06/19 13:57 Nitroglycerin (Ntg) 0.4 mg Q5M PRN SL Prn Chest Pain 08/06/19 12:35 09/03/19 23:29 Ondansetron HCl (Zofran) 4 mg Q4H PRN IVP Nausea & Vomiting 08/06/19 12:45 09/05/19 12:44 Oxycodone/ Acetaminophen (Percocet 10/325) 1 tab Q4H PRN ORAL Moderate Pain (Pain Scale 4-6) 08/06/19 12:45 08/13/19 12:44 08/06/19 17:31 Pantoprazole (Protonix) 40 mg DAILY ORAL 08/07/19 09:00 09/04/19 01:59 Ranolazine (Ranexa ER 500mg) 500 mg Q12HR ORAL 08/06/19 21:00 09/04/19 20:59 Allergies: Coded Allergies: PENICILLINS (Verified Allergy, Mild, Hives, 01/14/13) NSAIDS (NON-STEROIDAL ANTI-INFLAMMA (Unverified Allergy, Unknown, unknown , 08/05/19) ROS Limited/Unobtainable: No Constitutional: Reports: no symptoms HEENT: Reports: no symptoms Cardiovascular: Reports: chest pain Respiratory: Reports: no symptoms Gastrointestinal/Abdominal: Reports: no symptoms Genitourinary: Reports: no symptoms Neurologic/Psychiatric: Reports: no symptoms Subjective 69 YO F with history of coronary artery dis, admitted with chest pain.Cover for Int Ted Gonsales Objective Last Vital Signs Date Time Temp Pulse Resp B/P (MAP) Pulse Ox O2 Delivery O2 Flow Rate FiO2 08/06/19 16:00 98.3 79 17 107/77 (87) 97 08/06/19 09:00 Room Air Laboratory Tests Test 08/06/19 03:50 08/06/19 05:54 Urine Color Pale yellow Urine Appearance Clear Urine pH 6 (4.5-8.0) Urine Specific [place] 1.010 (1.005-1.035) Urine Protein 2+ (NEGATIVE) H Urine Glucose (UA) Negative (NEGATIVE) Urine Ketones Negative (NEGATIVE) Urine Blood Negative (NEGATIVE) Urine Nitrite Negative (NEGATIVE) Urine Bilirubin Negative (NEGATIVE) Urine Urobilinogen Normal MG/DL (0.0-1.0) Urine Leukocyte Esterase 1+ (NEGATIVE) H Urine RBC 0-2 /HPF (0 - 2) Urine WBC 0-2 /HPF (0 - 2) Urine Squamous Epithelial Cells Few /LPF (NONE/OCC) Urine Bacteria None /HPF (NONE) Urine Eosinophils None seen (NONE SEEN) Urine Osmolality 443 mOsm/kg (429-449) Urine Random Creatinine Pending Urine Random Microalbumin Pending Urine Random Sodium 28 mmol/L (20-110) Urine Microalbumin/Creatinine Ratio Pending White Blood Count 5.2 K/UL (4.8-10.8) Red Blood Count 3.55 M/UL (4.20-5.40) L Hemoglobin 10.4 G/DL (12.0-16.0) L Hematocrit 32.5 % (37.0-47.0) L Mean Corpuscular Volume 92 FL (80-99) Mean Corpuscular Hemoglobin 29.2 PG (27.0-31.0) Mean Corpuscular Hemoglobin Concent 31.8 G/DL (32.0-36.0) L Red Cell Distribution Width 14.7 % (11.6-14.8) Platelet Count 292 K/UL (150-450) Mean Platelet Volume 5.7 FL (6.5-10.1) L Neutrophils (%) (Auto) 57.7 % (45.0-75.0) Lymphocytes (%) (Auto) 30.4 % (20.0-45.0) Monocytes (%) (Auto) 9.2 % (1.0-10.0) Eosinophils (%) (Auto) 2.2 % (0.0-3.0) Basophils (%) (Auto) 0.4 % (0.0-2.0) Erythrocyte Sedimentation Rate 64 MM/HR (0-30) H Sodium Level 142 MMOL/L (136-145) Potassium Level 4.4 MMOL/L (3.5-5.1) Chloride Level 108 MMOL/L (98-107) H Carbon Dioxide Level 29 MMOL/L (21-32) Anion Gap 6 mmol/L (5-15) Blood Urea Nitrogen 32 mg/dL (7-18) H Creatinine 1.4 MG/DL (0.55-1.30) H Estimat Glomerular Filtration Rate 45.3 mL/min (>60) Glucose Level 125 MG/DL (74-106) H Calcium Level 8.9 MG/DL (8.5-10.1) Phosphorus Level 5.0 MG/DL (2.5-4.9) H Magnesium Level 2.1 MG/DL (1.8-2.4) Total Bilirubin 0.2 MG/DL (0.2-1.0) Aspartate Amino Transf (AST/SGOT) 12 U/L (15-37) L Alanine Aminotransferase (ALT/SGPT) 22 U/L (12-78) Alkaline Phosphatase 65 U/L (46-116) Troponin I 0.003 ng/mL (0.000-0.056) Pro-B-Type Natriuretic Peptide 377 pg/mL (0-125) H Total Protein 6.8 G/DL (6.4-8.2) Albumin 3.2 G/DL (3.4-5.0) L Globulin 3.6 g/dL Albumin/Globulin Ratio 0.9 (1.0-2.7) L Triglycerides Level 147 MG/DL (30-150) Cholesterol Level 113 MG/DL (< 200) LDL Cholesterol 55 mg/dL (<100) HDL Cholesterol 25 MG/DL (40-60) L Cholesterol/HDL Ratio 4.5 (3.3-4.4) H Amylase Level 122 U/L (25-115) H Lipase 356 U/L (73-393) Intake and Output 08/05/19 08/06/19 19:00 07:00 Intake Total 900 ml 480 ml Balance 900 ml 480 ml Intake Oral 900 ml 480 ml # Voids 5 1 Objective PHYSICAL EXAMINATION: GENERALLY: The patient is well-developed and well-nourished female, in no apparent distress. HEENT: Eyes, pupils are equal and responsive to light and accommodation. Extraocular movements are intact. NECK: Supple. No lymphadenopathy. CHEST: Lungs are clear to auscultation bilaterally without wheezes or rales. CARDIOVASCULAR: Regular rate. S1 and S2 normal without murmurs, rubs, or gallops. ABDOMEN: Soft, nontender, and nondistended. Positive bowel sounds. No evidence of hepatosplenomegaly. Currently, no rebound or guarding noted. EXTREMITIES: No clubbing, cyanosis, or edema. RECTAL: Not performed. GENITAL: Not performed. NEUROLOGIC: Cranial nerves II through XII are grossly intact without focal deficits. Motor strength is 5/5 bilaterally. Deep tendon reflexes are 2+ plantar. Assessment/Plan Assessment/Plan ASSESSMENT: This is a 69-year-old female. 1. Chest pain. 2. Hypertension. 3. Coronary artery disease. 4. Hypothyroidism. 5. Diabetes type 2. TREATMENT: 1. Chest pain/coronary disease. A Cardiology consultation has been obtained with Dr. Thomas Thompson. We will follow recommendations of Cardiology. 2. Hypertension. The patient is currently normotensive off medication. 3. Hypothyroidism. Continue Synthroid as above. 4. Diabetes type 2. Continue glyburide as above. Musa Barlow MD Aug 06, 2019 17:47
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
[2019-08-06] MEDS: Docusate 100mg cap ORAL SCH (18:43)
--- NOTE | 2019-08-06 19:16 | NUR ---
HAND-OFF: Report given to Minsu.
--- NOTE | 2019-08-06 19:20 | NUR ---
NURSE NOTES: Received report from NARDA Knott. Patient a/a/o x 4, breathing unlabored on room air without distress. Denies pain at this time. IV noted on right hand intact, dry, clean, and patent. Bed placed at the lowest with alarm, brake, and siderails up for safety. Patient has $1187 at the bedside, counted together with the previous shift RN. Call light placed within reach. Will continue to monitor and provide care as ordered.
[2019-08-06 20:00] VITALS: BP 132/71
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
[2019-08-06] MEDS ORDERED: Atorvastatin 20mg tab ORAL SCH (21:00)
--- NOTE | 2019-08-06 21:00 | NUR ---
NURSE NOTES: Patient removed her IV accidentally. Patient made aware that a new IV access is needed. Patient verbally acknowledge the need of new IV access. Explained the process prior and during the procedure. Patient tolerated the process well. Placed new IV on left hand 24g, intact, dry, and patent. Will continue to monitor and provide care as ordered.
[2019-08-07] VITALS: BP 122/64
[2019-08-07] MEDS: Morphine Sulfate 4mg/ml Inj (IV USE ONLY) IVP PRN ×4 (02:33→12:29)
[2019-08-07 04:00] VITALS: BP 118/64
[2019-08-07] MEDS: NovoLOG Insulin Flexpen SUBQ SCH ×3 (06:10→17:33)
[2019-08-07 06:35] LABS: BASOPHILS % (AUTO) 0.7 % (0.0-2.0); EOSINOPHILS % (AUTO) 4.2 % (0.0-3.0); HEMATOCRIT 35.1 % (37.0-47.0); LYMPHOCYTES % (AUTO) 29.9 % (20.0-45.0); MEAN CORPUSCULAR VOLUME 91 FL (80-99); MONOCYTES % (AUTO) 11.2 % (1.0-10.0); NEUTROPHILS % (AUTO) 53.9 % (45.0-75.0); PLATELET COUNT 289 K/UL (150-450); RED BLOOD COUNT 3.85 M/UL (4.20-5.40); RED CELL DISTRIBUTION WIDTH 14.8 % (11.6-14.8); WHITE BLOOD COUNT 4.9 K/UL (4.8-10.8)
[2019-08-07 06:44] LABS: ANION GAP 4 mmol/L (5-15); BLOOD UREA NITROGEN 27 mg/dL (7-18); CALCIUM 8.8 MG/DL (8.5-10.1); CARBON DIOXIDE 30 MMOL/L (21-32); CHLORIDE 105 MMOL/L (98-107); CREATININE 1.3 MG/DL (0.55-1.30); POTASSIUM 4.7 MMOL/L (3.5-5.1); SODIUM 139 MMOL/L (136-145)
--- NOTE | 2019-08-07 07:20 | NUR ---
HAND-OFF: Report given to NARDA Knott and NARDA Lerner.
--- NOTE | 2019-08-07 07:23 | NUR ---
NURSE NOTES: Report received from Minsu RN. Patient awake and alert x 4. Patient sitting up right in bed eating breakfast. Patient does not report pain at this. 24 gaga IV in tact and patent in left hand. Educated patient to call when need to get up. Bed in lowest position, locked, and alarmed. Will continue to follow plan of care.
[2019-08-07 08:00] VITALS: BP 156/59
[2019-08-07] MEDS: Docusate 100mg cap ORAL SCH ×3 (08:49→17:36)
[2019-08-07] MEDS: Ranolazine 500mg tab ORAL SCH (08:52)
[2019-08-07] MEDS: Heparin 5000 units/ml inj SUBQ SCH (08:56)
[2019-08-07] MEDS ORDERED: GlipiZIDE 5mg tab ORAL SCH (09:00)
[2019-08-07] MEDS ORDERED: Imdur 30mg tab ORAL SCH (09:00)
[2019-08-07] MEDS ORDERED: Aspirin EC 81mg tab ORAL SCH (09:00)
[2019-08-07 12:00] VITALS: BP 108/60
--- NOTE | 2019-08-07 12:40 | NUR ---
CASE MANAGEMENT: REVIEW 08/07/19 SI: CORONARY ARTERY DISEASE . STENTED CORONARY ARTERY. HYDRONEPHROSIS 98.3 66 17 156/59 99% ON RA H/H .1 BUN 27 BG 147 IS: IMDUR PO QD HEPARIN SQ BID PERCOCET GT QHS PROTONIX PO QD ASPIRIN PO QD NEURONTIN GT TID \:4E MED SURG UNIT PLAN: ECHO PENDING CT ABD -MODERATE HYDRONEPHROSIS posterior dependent pulmonary parenchymal atelectatic changes
--- NOTE | 2019-08-07 13:41 | Pulmonology Progress Note ---
Assessment/Plan Problems: (1) ACS (acute coronary syndrome) (2) Hydronephrosis, right (3) Stented coronary artery (4) CAD (coronary artery disease) (5) Chronic pain Assessment/Plan CT with contrast to clarify the findings on US of kidney which showed: Impression: Moderate right hydronephrosis versus parapelvic cysts CT showed: Ectasia of the right renal collecting system, may just represent a floppy collecting system rather than true hydronephrosis Renal numbers are stable cardio note appreciated check echo dc home Subjective ROS Limited/Unobtainable: No Constitutional: Reports: no symptoms HEENT: Repors: no symptoms Allergies: Coded Allergies: PENICILLINS (Verified Allergy, Mild, Hives, 01/14/13) NSAIDS (NON-STEROIDAL ANTI-INFLAMMA (Unverified Allergy, Unknown, unknown , 08/05/19) Objective Last 24 Hour Vital Signs Date Time Temp Pulse Resp B/P (MAP) Pulse Ox O2 Delivery O2 Flow Rate FiO2 08/07/19 12:00 98.2 87 17 108/60 (76) 99 08/07/19 09:00 Room Air 08/07/19 08:50 156/59 08/07/19 08:00 98.3 66 17 156/59 (91) 99 08/07/19 04:00 97.9 76 18 118/64 (82) 96 08/07/19 00:00 98.5 80 16 122/64 (83) 99 08/06/19 21:00 Room Air 08/06/19 20:00 97.8 78 16 132/71 (91) 93 08/06/19 16:00 98.3 79 17 107/77 (87) 97 Intake and Output 08/06/19 08/07/19 19:00 07:00 Intake Total 840 ml 600 ml Output Total 0 ml Balance 840 ml 600 ml Intake Oral 840 ml 600 ml Output Urine Total 0 ml # Voids 7 6 General Appearance: WD/WN HEENT: normocephalic, anicteric Respiratory/Chest: chest wall non-tender, lungs clear Breasts: no masses Cardiovascular: normal peripheral pulses Abdomen: soft, non tender, no organomegaly Genitourinary: normal external genitalia Extremities: no clubbing Skin: no lesions Microbiology Date/Time Source Procedure Growth Status 08/05/19 00:15 Nasal Nares MRSA Culture - Final NO METHICILLIN RESISTANT STAPH AUREUS... Complete 08/05/19 00:15 Rectum VRE Culture - Final NO VANCOMYCIN RESISTANT ENTEROCOCCUS ... Complete 08/05/19 00:15 Rectum - Final NO CARBAPENEM-RESISTANT ENTEROBACTERI... Complete Laboratory Tests 08/07/19 06:10: White Blood Count 4.9, Red Blood Count 3.85L, Hemoglobin 11.0L, Hematocrit 35.1L , Mean Corpuscular Volume 91, Mean Corpuscular Hemoglobin 28.7, Mean Corpuscular Hemoglobin Concent 31.5L, Red Cell Distribution Width 14.8, Platelet Count 289, Mean Platelet Volume 5.4L, Neutrophils (%) (Auto) 53.9, Lymphocytes (%) (Auto) 29.9, Monocytes (%) (Auto) 11.2H, Eosinophils (%) (Auto) 4.2H, Basophils (%) (Auto) 0.7, Sodium Level 139, Potassium Level 4.7, Chloride Level 105, Carbon Dioxide Level 30, Anion Gap 4L, Blood Urea Nitrogen 27H, Creatinine 1.3, Estimat Glomerular Filtration Rate 49.3, Glucose Level 147H, Calcium Level 8.8 Current Medications Medications (Trade) Dose Ordered Sig/Kelly Route PRN Reason Start Time Stop Time Status Last Admin Dose Admin Acetaminophen (Tylenol) 650 mg Q6H PRN ORAL Mild Pain/Temp > 100.5 08/06/19 12:45 09/03/19 12:44 Al Hydroxide/Mg Hydroxide (Mylanta) 30 ml Q6H PRN ORAL heartburn 08/06/19 13:30 09/04/19 01:29 08/07/19 06:06 Aspirin (Ecotrin) 81 mg DAILY ORAL 08/07/19 09:00 09/04/19 20:59 08/07/19 08:51 Atorvastatin Calcium (Lipitor) 40 mg BEDTIME ORAL 08/06/19 21:00 09/04/19 20:59 08/06/19 20:34 Dextrose (Dextrose 50%) 25 ml Q30M PRN IV Hypoglycemia 08/06/19 12:45 09/03/19 12:44 Dextrose (Dextrose 50%) 50 ml Q30M PRN IV Hypoglycemia 08/06/19 12:45 09/03/19 12:44 Docusate Sodium (Colace) 100 mg THREE TIMES A DAY ORAL 08/06/19 18:00 09/05/19 17:59 08/07/19 08:49 Duloxetine HCl (Cymbalta) 60 mg DAILY ORAL 08/07/19 09:00 09/04/19 08:59 08/07/19 08:51 Gabapentin (Neurontin) 300 mg THREE TIMES A DAY ORAL 08/06/19 13:00 09/04/19 08:59 08/07/19 08:51 Glipizide (Glucotrol) 10 mg DAILY ORAL 08/07/19 09:00 09/04/19 08:59 08/07/19 08:49 Heparin Sodium (Porcine) (Heparin 5000 units/ml) 5,000 units EVERY 12 HOURS SUBQ 08/06/19 21:00 09/04/19 08:59 08/07/19 08:56 Insulin Aspart (NovoLOG) BEFORE MEALS AND HS SUBQ 08/06/19 16:30 09/04/19 06:29 08/07/19 11:33 Isosorbide Mononitrate (Imdur) 30 mg DAILY ORAL 08/07/19 09:00 09/04/19 20:59 08/07/19 08:50 Levothyroxine Sodium (Synthroid) 75 mcg DAILY@0630 ORAL 08/07/19 06:30 09/05/19 06:29 08/07/19 06:06 Levothyroxine Sodium (Synthroid) 100 mcg DAILY@0630 ORAL 08/07/19 06:30 09/05/19 06:29 08/07/19 06:06 Morphine Sulfate (Morphine Sulfate) 4 mg Q4H PRN IVP Severe Pain (Pain Scale 7-10) 08/06/19 12:45 08/11/19 12:44 08/07/19 12:29 Nitroglycerin (Ntg) 0.4 mg Q5M PRN SL Prn Chest Pain 08/06/19 12:35 09/03/19 23:29 Ondansetron HCl (Zofran) 4 mg Q4H PRN IVP Nausea & Vomiting 08/06/19 12:45 09/05/19 12:44 Oxycodone/ Acetaminophen (Percocet 10/325) 1 tab Q4H PRN ORAL Moderate Pain (Pain Scale 4-6) 08/06/19 12:45 08/13/19 12:44 08/06/19 17:31 Pantoprazole (Protonix) 40 mg DAILY ORAL 08/07/19 09:00 09/04/19 01:59 08/07/19 08:48 Ranolazine (Ranexa ER 500mg) 500 mg Q12HR ORAL 08/06/19 21:00 09/04/19 20:59 08/07/19 08:52 Emma Manrique MD Aug 07, 2019 13:41
--- NOTE | 2019-08-07 14:30 | NUR ---
NURSE NOTES: Patient is aware of discharge. Before discharge patient requests refills for prescriptions that she no longer has at home. Contacted Doctor Hilaria.
[2019-08-07 16:00] VITALS: BP 110/78
--- NOTE | 2019-08-07 16:00 | NUR ---
NURSE NOTES: Received prescription for gabapentin and synthroid. Doctor Hilaria cannot prescribe percocet and berlinta. Patient request to be discharged with percocet medication. Doctor Manrique educated patient to follow up with primary care for pain medication. Patient states that she currently does not have a primary care and will not leave until she gets a prescription for pain medication. Will follow up with Doctor Yen.
[2019-08-07] MEDS ORDERED: SYNTHROID137 MCG ORAL (16:34)
[2019-08-07] MEDS ORDERED: GABAPENTIN100 MG ORAL (16:34)
--- NOTE | 2019-08-07 17:30 | NUR ---
NURSE NOTES: Doctor Yen came to see patient. Doctor wrote prescription for Brlinta and Percocet for patient to bring to pharmacy. Will continue discharge process.
--- NOTE | 2019-08-07 17:57 | Internal Med Progress Note ---
Subjective Date of Service: Aug 07, 2019 Physician Name Musa Barlow Attending Physician Joey Gonsales MD Current Medications Medications (Trade) Dose Ordered Sig/Kelly Route PRN Reason Start Time Stop Time Status Last Admin Dose Admin Acetaminophen (Tylenol) 650 mg Q6H PRN ORAL Mild Pain/Temp > 100.5 08/06/19 12:45 09/03/19 12:44 Al Hydroxide/Mg Hydroxide (Mylanta) 30 ml Q6H PRN ORAL heartburn 08/06/19 13:30 09/04/19 01:29 08/07/19 16:32 Aspirin (Ecotrin) 81 mg DAILY ORAL 08/07/19 09:00 09/04/19 20:59 08/07/19 08:51 Atorvastatin Calcium (Lipitor) 40 mg BEDTIME ORAL 08/06/19 21:00 09/04/19 20:59 08/06/19 20:34 Dextrose (Dextrose 50%) 25 ml Q30M PRN IV Hypoglycemia 08/06/19 12:45 09/03/19 12:44 Dextrose (Dextrose 50%) 50 ml Q30M PRN IV Hypoglycemia 08/06/19 12:45 09/03/19 12:44 Docusate Sodium (Colace) 100 mg THREE TIMES A DAY ORAL 08/06/19 18:00 09/05/19 17:59 08/07/19 17:36 Duloxetine HCl (Cymbalta) 60 mg DAILY ORAL 08/07/19 09:00 09/04/19 08:59 08/07/19 08:51 Gabapentin (Neurontin) 300 mg THREE TIMES A DAY ORAL 08/06/19 13:00 09/04/19 08:59 08/07/19 17:36 Glipizide (Glucotrol) 10 mg DAILY ORAL 08/07/19 09:00 09/04/19 08:59 08/07/19 08:49 Heparin Sodium (Porcine) (Heparin 5000 units/ml) 5,000 units EVERY 12 HOURS SUBQ 08/06/19 21:00 09/04/19 08:59 08/07/19 08:56 Insulin Aspart (NovoLOG) BEFORE MEALS AND HS SUBQ 08/06/19 16:30 09/04/19 06:29 08/07/19 17:33 Isosorbide Mononitrate (Imdur) 30 mg DAILY ORAL 08/07/19 09:00 09/04/19 20:59 08/07/19 08:50 Levothyroxine Sodium (Synthroid) 75 mcg DAILY@0630 ORAL 08/07/19 06:30 09/05/19 06:29 08/07/19 06:06 Levothyroxine Sodium (Synthroid) 100 mcg DAILY@0630 ORAL 08/07/19 06:30 09/05/19 06:29 08/07/19 06:06 Morphine Sulfate (Morphine Sulfate) 4 mg Q4H PRN IVP Severe Pain (Pain Scale 7-10) 08/06/19 12:45 08/11/19 12:44 08/07/19 12:29 Nitroglycerin (Ntg) 0.4 mg Q5M PRN SL Prn Chest Pain 08/06/19 12:35 09/03/19 23:29 Ondansetron HCl (Zofran) 4 mg Q4H PRN IVP Nausea & Vomiting 08/06/19 12:45 09/05/19 12:44 Oxycodone/ Acetaminophen (Percocet 10/325) 1 tab Q4H PRN ORAL Moderate Pain (Pain Scale 4-6) 08/06/19 12:45 08/13/19 12:44 08/07/19 17:02 Pantoprazole (Protonix) 40 mg DAILY ORAL 08/07/19 09:00 09/04/19 01:59 08/07/19 08:48 Ranolazine (Ranexa ER 500mg) 500 mg Q12HR ORAL 08/06/19 21:00 09/04/19 20:59 08/07/19 08:52 Allergies: Coded Allergies: PENICILLINS (Verified Allergy, Mild, Hives, 01/14/13) NSAIDS (NON-STEROIDAL ANTI-INFLAMMA (Unverified Allergy, Unknown, unknown , 08/05/19) ROS Limited/Unobtainable: No Constitutional: Reports: no symptoms HEENT: Reports: no symptoms Cardiovascular: Reports: no symptoms Respiratory: Reports: no symptoms Gastrointestinal/Abdominal: Reports: no symptoms Genitourinary: Reports: no symptoms Neurologic/Psychiatric: Reports: no symptoms Subjective 69 YO F with history of coronary artery dis, admitted with chest pain.Cover for Int Zia-Dr Gonsales Objective Last Vital Signs Date Time Temp Pulse Resp B/P (MAP) Pulse Ox O2 Delivery O2 Flow Rate FiO2 08/07/19 16:00 98.3 89 18 110/78 (89) 99 08/07/19 09:00 Room Air Laboratory Tests Test 08/07/19 06:10 White Blood Count 4.9 K/UL (4.8-10.8) Red Blood Count 3.85 M/UL (4.20-5.40) L Hemoglobin 11.0 G/DL (12.0-16.0) L Hematocrit 35.1 % (37.0-47.0) L Mean Corpuscular Volume 91 FL (80-99) Mean Corpuscular Hemoglobin 28.7 PG (27.0-31.0) Mean Corpuscular Hemoglobin Concent 31.5 G/DL (32.0-36.0) L Red Cell Distribution Width 14.8 % (11.6-14.8) Platelet Count 289 K/UL (150-450) Mean Platelet Volume 5.4 FL (6.5-10.1) L Neutrophils (%) (Auto) 53.9 % (45.0-75.0) Lymphocytes (%) (Auto) 29.9 % (20.0-45.0) Monocytes (%) (Auto) 11.2 % (1.0-10.0) H Eosinophils (%) (Auto) 4.2 % (0.0-3.0) H Basophils (%) (Auto) 0.7 % (0.0-2.0) Sodium Level 139 MMOL/L (136-145) Potassium Level 4.7 MMOL/L (3.5-5.1) Chloride Level 105 MMOL/L (98-107) Carbon Dioxide Level 30 MMOL/L (21-32) Anion Gap 4 mmol/L (5-15) L Blood Urea Nitrogen 27 mg/dL (7-18) H Creatinine 1.3 MG/DL (0.55-1.30) Estimat Glomerular Filtration Rate 49.3 mL/min (>60) Glucose Level 147 MG/DL (74-106) H Calcium Level 8.8 MG/DL (8.5-10.1) Microbiology Date/Time Source Procedure Growth Status 08/05/19 00:15 Nasal Nares MRSA Culture - Final NO METHICILLIN RESISTANT STAPH AUREUS... Complete 08/05/19 00:15 Rectum VRE Culture - Final NO VANCOMYCIN RESISTANT ENTEROCOCCUS ... Complete 08/05/19 00:15 Rectum - Final NO CARBAPENEM-RESISTANT ENTEROBACTERI... Complete Intake and Output 08/06/19 08/07/19 19:00 07:00 Intake Total 840 ml 600 ml Output Total 0 ml Balance 840 ml 600 ml Intake Oral 840 ml 600 ml Output Urine Total 0 ml # Voids 7 6 Objective PHYSICAL EXAMINATION: GENERALLY: The patient is well-developed and well-nourished female, in no apparent distress. HEENT: Eyes, pupils are equal and responsive to light and accommodation. Extraocular movements are intact. NECK: Supple. No lymphadenopathy. CHEST: Lungs are clear to auscultation bilaterally without wheezes or rales. CARDIOVASCULAR: Regular rate. S1 and S2 normal without murmurs, rubs, or gallops. ABDOMEN: Soft, nontender, and nondistended. Positive bowel sounds. No evidence of hepatosplenomegaly. Currently, no rebound or guarding noted. EXTREMITIES: No clubbing, cyanosis, or edema. RECTAL: Not performed. GENITAL: Not performed. NEUROLOGIC: Cranial nerves II through XII are grossly intact without focal deficits. Motor strength is 5/5 bilaterally. Deep tendon reflexes are 2+ plantar. Assessment/Plan Assessment/Plan ASSESSMENT: This is a 69-year-old female. 1. Chest pain. 2. Hypertension. 3. Coronary artery disease. 4. Hypothyroidism. 5. Diabetes type 2. TREATMENT: 1. Chest pain/coronary disease. A Cardiology consultation has been obtained with Dr. Thomas Thompson. We will follow recommendations of Cardiology. 2. Hypertension. The patient is currently normotensive off medication. 3. Hypothyroidism. Continue Synthroid as above. 4. Diabetes type 2. Continue glyburide as above. 5. Discharge home today Musa Barlow MD Aug 07, 2019 17:57
--- NOTE | 2019-08-07 19:00 | NUR ---
NURSE NOTES: Patient was discharged to home by taxi. patient is alert and oriented x4. Patient has her house wyatt. No s/s of hypo/hyperglycemia. Patient ate 75% of dinner. IV and ID were removed, no s/s of infection on IV removal site. all her belongings are accounted for. Patient has manzano, no discrepancy. discharge instruction was given to the patient about meds, when to seek for medical attention. prescriptions were given to the patient. Patient will fill the medications from her choice of pharmacy. skin is intact, no skin issue. discharged to home in stable condition. Staff escorted patient to taxi with her all belongings.
--- NOTE | 2019-08-09 11:31 | Discharge Summary ---
Discharge Summary Discharge Summary _ DATE OF ADMISSION: 08/04/2019 DATE OF DISCHARGE: 08/07/2019 DISCHARGED BY: Dr. Gonsales REASON FOR ADMISSION: 69 years old female with past medical history of hypertension, diabetes mellitus , coronary artery disease, status post 3 stents placement , on Brilinta, chronic back pain, initially was taken to [facility] emergency room with chief complaint of chest pain. Pain described as mostly substernal, burning, constant, radiating to her left arm. Patient had a recurrent visit to [facility] with the same symptoms. Chest x-ray was unremarkable. Troponin was negative. Patient received GI cocktail , morphine, full dose of aspirin and subsequently transferred to [facility] for further management. CONSULTANTS: hand alterations tailor Dr. Thompson pulmonary Dr. Manrique [facility] COURSE: Patient admitted to telemetry floor. Serial troponin were negative. EKG revealed no acute ischemic changes. Patient was ruled out for acute myocardial infarction. Underwear Hemmer followed. Echocardiogram demonstrated preserved ejection fraction of 55%, moderate mitral regurgitation, right ventricular systolic pressure of 32. No left ventricular hypertrophy. No evidence of pericardial effusion. No evidence of wall motion abnormality. Per hand alterations tailor, patient has a history of stenting with subsequent stent thrombosis , apparently secondary to noncompliance with medications. Patient was on Brilinta at home. Dual antiplatelet therapy at this time provided with aspirin and Plavix. Statin continued. Lipid panel was stable. Ranexa and Imdur continued. DVT and GI prophylaxis provided . 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 According to hand alterations tailor , patient's pain was epigastric and not the chest pain, and was more suggestive of peptic ulcer disease or pancreatitis. Amylase was slightly elevated and lipase was 350 . Pain management was addressed judiciously as needed and eventually controlled. Blood sugar was managed with sliding scale of insulin. Levothyroxine continued. Renal parameters and electrolytes were closely monitored. Creatinine noted to rise to be 1.4. Renal ultrasound revealed moderate right hydronephrosis versus parapelvic cyst. Post void residual 98 mL. Patient subsequently undergone CT of the abdomen and pelvis which revealed ectatic pancreatic duct with unclear significance and uncertain etiology . Ectasia of the right renal collecting system may just represent a floppy collecting system, rather than true hydronephrosis . No parapelvic cysts were demonstrated. Creatinine subsequently down to 1.3. Nephrotoxic's were avoided. Supportive care provided. Patient clinically stabilized and was ready for discharge. FINAL DIAGNOSES: Epigastric pain , likely due to PUD or pancreatitis Coronary artery disease with history of stenting with subsequent stent thrombosis due to noncompliance with medication History of pancreatitis History of sphincterectomy for sphincter of Oddi Nephrolithiasis Hyperlipidemia History of opioid dependency Chronic pain Diabetes mellitus Hypertension Right-sided hydronephrosis History of substance abuse Hypothyroidism DISCHARGE MEDICATIONS: See Medication Reconciliation list. DISCHARGE INSTRUCTIONS: Patient was discharged home Follow up with primary care provider in one week. Reinforced compliance with medication regimen. I have been assigned to dictate discharge summary for this account. I was not involved in the patient's management. Radha Oconnell NP Aug 09, 2019 11:31
== END 2019-08-07 19:00 | disposition home or self-care (01) | DRG 391 ==
LOC: 2E 19:30 → 4E 08-06 12:15
DX: R10.13 Epigastric pain (principal); K85.90 Acute pancreatitis without necrosis or infection, unspecified; N13.2 Hydronephrosis with renal and ureteral calculous obstruction; K27.9 Peptic ulcer, site unspecified, unspecified as acute or chronic, without hemorrhage or perforation; E03.9 Hypothyroidism, unspecified; I25.10 Atherosclerotic heart disease of native coronary artery without angina pectoris; Z95.5 Presence of coronary angioplasty implant and graft; I10 Essential (primary) hypertension; Z79.84 Long term (current) use of oral hypoglycemic drugs; Z88.6 Allergy status to analgesic agent; Z88.0 Allergy status to penicillin; I25.2 Old myocardial infarction; M19.90 Unspecified osteoarthritis, unspecified site; E11.40 Type 2 diabetes mellitus with diabetic neuropathy, unspecified; K21.9 Gastro-esophageal reflux disease without esophagitis; E78.5 Hyperlipidemia, unspecified; F43.10 Post-traumatic stress disorder, unspecified; Z98.1 Arthrodesis status; M51.36 Other intervertebral disc degeneration, lumbar region; E11.21 Type 2 diabetes mellitus with diabetic nephropathy; K76.0 Fatty (change of) liver, not elsewhere classified; G89.29 Other chronic pain; F14.11 Cocaine abuse, in remission; F15.11 Other stimulant abuse, in remission; F11.11 Opioid abuse, in remission
CPT/HCPCS: 36415; 74177; 76770; 80048; 80053; 80061; 81001; 82043; 82150; 82550; 82962; 83690; 83735; 83880; 83935; 84100; 84300; 84484; 84550; 85025; 85651; 87081; 89050; 93005; 93306; J1815; J2405

== ENCOUNTER 2020-02-03 11:42 | Emergency (ER) | payer MEDICARE, MEDICAID ==
[~2020-02-03] VITALS: Ht 162.6 cm; Wt 56.7 kg
[~2020-02-03 11:42] MED LIST changes: +GLIPIZIDE10 MG PO; +SYNTHROID137 MCG ORAL
[2020-02-03 12:11] VITALS: BP 165/89
--- NOTE | 2020-02-03 12:12 | NUR ---
ED Nurse Note:pt. came for pain meds refill for her chronic back pain
--- NOTE | 2020-02-03 12:21 | Emergency Room Report ---
History of Present Illness General Chief Complaint: Medication Refill Source: Patient Present Illness HPI The patient states she has chronic pain. She states that she has an appointment with her primary care physician on . She states she is out of her Percocet that she uses for her chronic pain. She states she is having a severe exacerbation of her pain. This is her usual bilateral radiculopathy. She states she has had 11 spinal surgeries. She is also on other medications to include gabapentin and Cymbalta. She states she has all of these but is out of her Percocet. She is requesting a refill of her Percocet. 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 Patient History Past Medical History: see triage record, DM, HTN, CAD, other - Hypothyroid Social History: Denies: smoking, alcohol use, drug use Now: No Reviewed Nursing Documentation: PMH: Agreed; PSxH: Agreed Nursing Documentation-PMH Hx Cardiac Problems: Yes - stents x3 Hx Hypertension: Yes Hx Diabetes: Yes Hx Neurological Problems: Yes - Sciatica, Back surgery 9 times, THYROID Review of Systems All Other Systems: negative except mentioned in HPI Physical Exam Vital Signs Date Time Temp Pulse Resp B/P (MAP) Pulse Ox O2 Delivery O2 Flow Rate FiO2 02/03/20 11:48 98.1 84 18 165/89 (114) 99 Room Air Sp02 EP Interpretation: reviewed, normal General Appearance: no apparent distress, alert, GCS 15, non-toxic Head: normocephalic, atraumatic ENT: hearing grossly normal, no angioedema, normal voice Neck: normal inspection Respiratory: no respiratory distress, no retraction, no accessory muscle use, speaking full sentences Rectal: deferred Musculoskeletal: back normal, normal range of motion, other - Old scars on back c/w hx of spinal surgeries. Neurologic: alert, motor strength/tone normal, oriented x3, sensory intact, responsive, speech normal Psychiatric: judgement/insight normal, memory normal, mood/affect normal, no suicidal/homicidal ideation Skin: no rash, normal color Medical Decision Making Diagnostic Impression: Primary Impression: Chronic pain ER Course This patient has chronic pain and is requesting a medication refill of her Percocet. She has all of her other nonnarcotic medications. I did give her an oral Percocet today. I will give her a few tablets to get her through to her appointment on . I did educate the patient that the emergency department is the place to obtain narcotic refills or any type of medication refills. She indicated understanding. This elderly female should be followed by pain management as it is dangerous for me to refill narcotic pain medications. Last Vital Signs Date Time Temp Pulse Resp B/P (MAP) Pulse Ox O2 Delivery O2 Flow Rate FiO2 02/03/20 12:11 98.1 82 18 165/89 99 Room Air Status: improved Disposition: HOME, SELF-CARE Condition: Improved Patient Instructions: Medicine Refill at the Emergency Department Whit Patel DO Feb 03, 2020 12:21
[2020-02-03] MEDS ORDERED: PERCOCET 10-321 EACH ORAL (12:22)
[2020-02-03 12:30] VITALS: BP 165/89
--- NOTE | 2020-02-03 12:31 | NUR ---
ER DISCHARGE NOTE: Patient is cleared to be discharged per ERMD, pt is aox4, on room air, with stable vital signs. pt was given dc and prescription instructions, pt was able to verbalize understanding, pt is able to ambulate with steady gait. pt took all belongings.
[2020-02-15] MEDS ORDERED: LIDODERM700 M1 TOPIC (11:34)
== END 2020-02-03 12:30 | disposition home or self-care (01) ==
LOC: EMR 12:17
DX: G89.29 Other chronic pain (principal); Z88.0 Allergy status to penicillin; Z88.6 Allergy status to analgesic agent; E11.9 Type 2 diabetes mellitus without complications; I11.0 Hypertensive heart disease with heart failure; I25.10 Atherosclerotic heart disease of native coronary artery without angina pectoris; E03.9 Hypothyroidism, unspecified; Z95.5 Presence of coronary angioplasty implant and graft
CPT/HCPCS: 99282

== ENCOUNTER → 2020-02-15 | Emergency (ER) | payer MEDICARE, MEDICAID ==
[~2020-02-15] VITALS: Ht 165.1 cm; Wt 59.0 kg
[~2020-02-15] MED LIST changes: +LIDODERM700 M1 TOPIC; +PERCOCET 10-321 EACH ORAL
--- NOTE | 2020-02-15 11:22 | NUR ---
ED Nurse Note: Patient presents to ER due to low back pain radiating to BLE, worsened for the past 2 days after she ran out of her medication (Percocet). Patient ambulated to the room using walker and steady gait noted. Patient initially states PCP refilled her medication, but pharmacy did not receive it, but she also states PCP out of town, and later states patient does not have PCP since 11/07. Patient awake, alert, oriented x 4. Regular, unlabored breathing noted. Patient also c/o bilateral kneees swellling, "making noise, clicking" when she straighten her legs. No redness, tenderness, swelling or warmth noted on the bilateral knees. Bed in lowest position.
[2020-02-15 11:37] VITALS: BP 127/88
--- NOTE | 2020-02-15 11:39 | Emergency Room Report ---
History of Present Illness General Chief Complaint: Back Pain-No Injury Source: Patient Present Illness HPI Disclaimer: Please note that this report is being documented using [employer] technology. This can lead to erroneous entry secondary to incorrect interpretation by the dictating instrument. HPI:-year-old female with a history of multiple spine surgeries and sciatica presents for evaluation of back pain requesting medication refill. Patient states she ran out of Percocet which he takes for chronic back pain secondary to multiple surgeries with resultant sciatica. She has been using her gabapentin as well as Cymbalta without significant improvement. She is initially said that her PMD was out of town but later changed her story stating that she did not yet have a PMD or that she was assigned a PMD but has not met them yet. Denies new trauma or injury. She complains of pain radiating down from the buttocks down the legs bilaterally. She states this is her chronic pain and there is no change in condition. No new trauma. She is ambulatory with the use of her walker which is her baseline. 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 EOMI. Resp: Normal work of breathing Skin: Intact. No abrasions, laceration or rash over the exposed skin MSK: Normal tone and bulk. Moving all extremities. No obvious deformity. Ambulatory with use of walker. Can transfer to chair from bed and ambulating with steady gait using walker Neuro: Awake and alert. Mentating appropriately Spine: Extensive scarring in the midline lower extremities that are clean dry and intact. No significant midline tenderness moderate paraspinal tenderness. Medical Decision Making Diagnostic Impression: Primary Impression: Back pain ER Course 69-year-old female history of sciatica presents requesting Percocet refill for longstanding back pain. No injury reported. Denies any neuro sensory or strength deficits. Cures report shows the patient has had 4 prescriptions for narcotic pain medications from 4 different providers including a recent 10-day supply on 02/08. The patient's history and cures report are concerning for opiate abuse. I informed her that I could not prescribe her any further narcotic pain medication that she would have to follow-up with her PMD and/or final touch up painter. I did offer her a lidocaine patch which she accepted I will write her prescription. Does not require emergent labs or imaging at this time stable for outpatient follow-up. Last Vital Signs Date Time Temp Pulse Resp B/P (MAP) Pulse Ox O2 Delivery O2 Flow Rate FiO2 02/15/20 11:07 97.9 102 17 137/95 (109) 97 Room Air Disposition: HOME, SELF-CARE Condition: Stable Scripts Lidocaine Patch* (Lidoderm Patch*) 1 Each Adh..patch 1 PATCH TOPIC DAILY, #30 PATCH Patch(es) may remain in place for up to 12 hours in any 24-hour period. Prov: Wisam Kyle MD 02/15/20 Patient Instructions: Sciatica, Back Pain, Adult Additional Instructions: Please follow-up with your primary care doctor in the next 1 to 3 days to discuss this emergency department visit and for reevaluation. If you have any new or worsening symptoms please return to the emergency department for reevaluation. Please note that this report is being documented using [employer] technology. This can lead to erroneous entry secondary to incorrect interpretation by the dictating instrument. Wisam Kyle MD Feb 15, 2020 11:39
--- NOTE | 2020-02-15 11:40 | NUR ---
ER DISCHARGE NOTE: Patient is cleared to be discharged per ERMD, pt is aox4, on room air, with stable vital signs. pt was given dc and prescription instructions, pt was able to verbalize understanding, pt id band removed. pt is able to ambulate with steady gait. pt took all belongings.
== END | disposition home or self-care (01) ==
LOC: EMR 12:31
DX: M54.9 Dorsalgia, unspecified (principal); G89.29 Other chronic pain; I25.10 Atherosclerotic heart disease of native coronary artery without angina pectoris; Z98.1 Arthrodesis status; Z88.0 Allergy status to penicillin; Z88.6 Allergy status to analgesic agent; Z95.5 Presence of coronary angioplasty implant and graft; M79.605 Pain in left leg; M79.604 Pain in right leg; E11.9 Type 2 diabetes mellitus without complications; I10 Essential (primary) hypertension
CPT/HCPCS: 99282